=== PATIENT | female | born 2000 | race Two or more races ===

== ENCOUNTER 2024-11-01 15:09 | Emergency (ER) | payer OTHER ==
[~2024-11-01] VITALS: Ht 154.9 cm; Wt 104.3 kg
[2024-11-01] MEDS ORDERED: 0.9 % SODIUM CHLORIDE 1,000 ML IV STA (16:23)
[2024-11-01 17:25] LABS: CALCIUM 8.9 mg/dL (8.5-10.1); CREATININE SERUM 0.66 mg/dL (0.55-1.02); GFR 110.03; POTASSIUM 4.16 mEq/L (3.5-5.1)
[2024-11-01 17:47] LABS: HEMATOCRIT 42.7 % (36.0-45.00); MEAN CELL VOLUME 68.1 fL (80.00-100.00); MEAN CORPUSCULAR HGB CONC 30.5 g/dl (32.0-36.0); PLATELET COUNT 304 K/uL (150-450); RED BLOOD COUNT 6.27 M/uL (4.00-6.00); RED CELL DISTRIBUTION WIDTH 21.7 % (11.5-14.5)
[2024-11-01 17:48] LABS: MEAN CORPUSCULAR HEMOGLOBIN 20.7 pg (27.00-32.0)
== END 2024-11-01 20:19 | disposition home or self-care (01) ==
LOC: ER 15:11
PROVIDERS: Emergency Medicine
DX: K52.89 Other specified noninfective gastroenteritis and colitis (principal)